=== PATIENT | female | born 2000 | race Caucasian/White ===

== ENCOUNTER 2020-05-17 11:40 | Emergency (ER) | payer BC ==
[2020-05-17 12:24] LABS: BILIRUBIN,URINE NEGATIVE (NEGATIVE); CLARITY,URINE CLEAR (CLEAR); GLUCOSE, URINE (UA) NEGATIVE (NEGATIVE); KETONES,URINE (UA) NEGATIVE (NEGATIVE); LEUKOCYTE ESTERASE, URINE LARGE (NEGATIVE); NITRITE,URINE NEGATIVE (NEGATIVE); OCCULT BLOOD,URINE LARGE (NEGATIVE); PROTEIN,URINE NEGATIVE (NEGATIVE); UROBILINOGEN,URINE 0.2 (NORMAL) E.U./dL (NORMAL)
[2020-05-17 12:44] LABS: BACTERIA,URINE None Seen /HPF (None Seen); SQUAMOUS EPITHELIAL CELL,UR NONE SEEN (<= Few)
--- NOTE | 2020-05-17 13:14 | ED Physician Documentation ---
PD HPI FEMALE - Stated complaint Stated Complaint: FEMAL - Chief complaint Chief Complaint: UTI - History obtained from History obtained from: Patient - History of Present Illness Timing - onset: How many days ago (few) Timing - duration: Days Timing - details: Gradual onset, Still present Associated symptoms: Vaginal pain (some labial itching at times), Dysuria, Urinary frequency. No: Fever, Vaginal discharge Contributing factors: No: Exposed to STD Similar symptoms before: Has not had sx before Recently seen: Not recently seen Review of Systems Constitutional: denies: Fever, Chills GI: denies: Abdominal Pain, Nausea, Vomiting Musculoskeletal: denies: Back pain PD PAST MEDICAL HISTORY - Past Medical History Past Medical History: No - Present Medications Home Medications: Ambulatory Orders Medication Instructions Recorded Confirmed Cephalexin [Keflex] 500 mg PO TID #18 capsule 05/17/20 Fluconazole [Diflucan] 150 mg PO Q2D #3 tablet 05/17/20 - Allergies Allergies/Adverse Reactions: Allergies Allergy/AdvReac Type Severity Reaction Status Date / Time No Known Drug Allergies Allergy Verified 05/17/20 11:58 PD ED PE NORMAL - Vitals Vital signs reviewed: Yes - General General: Alert and oriented X 3, Well developed/nourished - Abdomen Abdomen: Soft, Non tender, Other (obese) - Female Female : Deferred - Back Back: No CVA TTP - Derm Derm: Normal color, Warm and dry Results - Vitals Vitals: Vital Signs - 24 hr 05/17/20 05/17/20 11:58 13:36 Temperature 36.8 C 36.6 C Heart Rate 86 84 Respiratory 16 16 Rate Blood Pressure 152/90 H 140/80 H O2 Saturation 98 100 Oxygen O2 Source Room air - Labs Labs: Laboratory Tests 05/17/20 05/17/20 12:09 12:10 Urine Color YELLOW Urine Clarity CLEAR Urine pH 6.0 Ur Specific Braymer <=1.005 <=1.005 Urine Protein NEGATIVE Urine Glucose (UA) NEGATIVE Urine Ketones NEGATIVE Urine Occult Blood LARGE H Urine Nitrite NEGATIVE Urine Bilirubin NEGATIVE Urine Urobilinogen 0.2 (NORMAL) Ur Leukocyte Esterase LARGE H Urine RBC 6-10 H Urine WBC >25 H Ur Squamous Epith Cells NONE SEEN Urine Bacteria None Seen Ur Microscopic Review INDICATED Urine Culture Comments INDICATED Urine HCG, Qual NEGATIVE PD MEDICAL DECISION MAKING - ED course Complexity details: considered differential (UA c/w UTI. describes some possible vaginal itching, so could give antifungal as well. Await cultures. ), d/w patient Departure - Departure Disposition: 01 Home, Self Care Clinical Impression: Dysuria UTI (urinary tract infection) Qualifiers: Urinary tract infection type: acute cystitis Hematuria presence: without hematuria Qualified Code(s): N30.00 - Acute cystitis without hematuria Condition: Stable Record reviewed to determine appropriate education?: Yes Instructions: ED UTI Cystitis Female Prescriptions: Fluconazole [Diflucan] 150 mg PO Q2D #3 tablet Cephalexin [Keflex] 500 mg PO TID #18 capsule Comments: Stay well-hydrated. Use the cephalexin antibiotic as directed for apparent bladder infection. You can also take the Diflucan every other day for 3 doses for potential yeast infection. Recheck if not improved well over the next several days. Discharge Date/Time: 05/17/20 13:36
[2020-05-17] MEDS ORDERED: cephALEXin 250 MG CAPSULE PO STA (13:21)
[2020-05-17] MEDS ORDERED: FLUCONAZOLE 100 MG TABLET PO STA (13:21)
[2020-05-17] MEDS ORDERED: PHENAZOPYRIDINE 100 MG TABLET PO STA (13:22)
[2020-05-17 13:37] LABS: HCG UR QUAL NEGATIVE
[2020-05-17 13:38] VITALS: BP 140/80
== END 2020-05-17 13:36 | disposition home or self-care (01) ==
LOC: ED 11:40
DX: N30.00 Acute cystitis without hematuria (principal)
CPT/HCPCS: 81001; 81025; 87086; 99283; A9270; 81003

== ENCOUNTER 2020-06-22 21:10 | Emergency (ER) | payer BC ==
[2020-06-22 21:51] LABS: BASOPHILS # (AUTO) 0.1 10^3/uL (0.0-0.1); BASOPHILS % (AUTO) 0.9 %; EOSINOPHILS # (AUTO) 0.5 10^3/uL (0.0-0.7); EOSINOPHILS % (AUTO) 3.6 %; HGB - HEMOGLOBIN 12.5 g/dL (12.0-16.0); LYMPHOCYTES # (AUTO) 3.8 10^3/uL (1.5-3.5); LYMPHOCYTES % (AUTO) 29.5 %; MEAN CORPUSCULAR HEMOGLOBIN 24.4 pg (27.0-31.0); MEAN CORPUSCULAR HGB CONC 30.9 g/dL (32.0-36.0); MEAN CORPUSCULAR VOLUME 78.9 fL (81.0-99.0); MEAN PLATELET VOLUME 9.4 fL (7.9-10.8); MONOCYTES % (AUTO) 7.5 %; NEUTROPHILS # (AUTO) 7.5 10^3/uL (1.5-6.6); PLT - PLATELET COUNT 525 10^3/uL (130-450); RED BLOOD COUNT 5.13 10^6/uL (4.20-5.40); RED CELL DISTRIBUTION WIDTH 14.6 % (12.0-15.0)
[2020-06-22 21:58] LABS: ALBUMIN 4.3 g/dL (3.2-5.5); ALBUMIN/GLOBULIN RATIO 1.2 (1.0-2.2); BILIRUBIN,TOTAL 0.4 mg/dL (0.2-1.0); CALCIUM 9.8 mg/dL (8.5-10.3); CREATININE 0.7 mg/dL (0.4-1.0); TOTAL PROTEIN 7.9 g/dL (6.7-8.2)
--- NOTE | 2020-06-22 21:59 | ED Physician Documentation ---
History of Present Illness - Stated complaint Stated Complaint: FEMALE - Chief complaint Chief Complaint: Abd Pain - History obtained from History obtained from: Patient, Family - Additonal information Additional information: 19-year-old female presents to the emergency department for evaluation of vulvar pain. She reports that for each of her last 4 cycles when she begins her period she begins to have abdominal cramping which she expects. However on day 3 of her menses she will begin to have pain in the vulvar area which has become increasingly uncomfortable over the last 48 hours. She denies pain with urination. She has had no fevers. She denies any history of sexually transmitted infection. This young lady lives in [place] but is currently on [facility] visiting her boyfriend. They do report that they did try and have sexual intercourse but she found it too painful. They have been using lubricating jelly but it hurts too much. She denies that she has pain with intercourse when she is not on her menstrual cycle. Review of Systems Constitutional: reports: Reviewed and negative Ears: reports: Reviewed and negative Nose: reports: Reviewed and negative Throat: reports: Reviewed and negative Cardiac: reports: Reviewed and negative Respiratory: reports: Reviewed and negative : reports: Vaginal bleeding, Other (vulvar pain). denies: Dysuria, Frequency, Hesitancy, Unable to Void Skin: reports: Reviewed and negative Musculoskeletal: reports: Reviewed and negative PD PAST MEDICAL HISTORY - Present Medications Home Medications: Ambulatory Orders Medication Instructions Recorded Confirmed Cephalexin [Keflex] 500 mg PO TID #18 capsule 05/17/20 Fluconazole [Diflucan] 150 mg PO Q2D #3 tablet 05/17/20 - Allergies Allergies/Adverse Reactions: Allergies Allergy/AdvReac Type Severity Reaction Status Date / Time No Known Drug Allergies Allergy Verified 06/22/20 21:27 PD ED PE EXPANDED - General General: Alert, Anxious - Cardiac Cardiac: Regular Rate, Regular Rhythm, Radial strong equal, Pedal strong equal, Cap refill < 2 sec - Respiratory Respiratory: Clear to ausultation melita, Distress - Abdomen Abdomen: Normal Bowel sounds. No: Tender to palpation - Female Female : Normal external (Normal external female exam. No vulvar lesions swelling or erythema. No cervical motion tenderness or adnexal tenderness. Patient is on her menses with moderate amount of blood in the vault) Results - Vitals Vitals: Vital Signs - 24 hr 06/22/20 21:15 Temperature 36.7 C Heart Rate 96 Respiratory 16 Rate Blood Pressure 148/83 H O2 Saturation 98 Oxygen O2 Source Room air - Labs Labs: Laboratory Tests 06/22/20 06/22/20 21:40 21:40 WBC 13.0 H RBC 5.13 Hgb 12.5 Hct 40.5 MCV 78.9 L MCH 24.4 L MCHC 30.9 L RDW 14.6 Plt Count 525 H MPV 9.4 Neut # (Auto) 7.5 H Lymph # (Auto) 3.8 H Clayton # (Auto) 1.0 Eos # (Auto) 0.5 Baso # (Auto) 0.1 Absolute Nucleated RBC 0.00 Nucleated RBC % 0.0 Sodium 145 Potassium 3.7 Chloride 104 Carbon Dioxide 24 Anion Gap 17.0 H BUN 9 Creatinine 0.7 Estimated GFR (MDRD) 108 Glucose 100 Calcium 9.8 Total Bilirubin 0.4 AST 16 ALT 14 Alkaline Phosphatase 60 Total Protein 7.9 Albumin 4.3 Globulin 3.6 Albumin/Globulin Ratio 1.2 Lipase 30 PD MEDICAL DECISION MAKING - ED course Complexity details: reviewed results, considered differential, d/w patient, d/w family ED course: 19-year-old female presents the emergency department for evaluation of vulvar pain that typically occurs on the second or third day of her menstrual cycle. This is been a continuous problem for the last 4 months. She denies that she has vulvar pain when she is not on her menstrual cycle. She denies that she has any dysuria at this time. She denies dyspareunia when she is NOT on her menst rual cycle. She has been speaking to her primary care provider about this concern and they are considering changing her oral contraceptive due to this concern. On exam today there were no abnormal findings on the exam. I have given her 1 Vicodin for analgesia. I do recommend that she continue to follow-up with her primary care provider to discuss alternatives for control as the hormones may be causing her vulvar pain during menses. I have also advised her to abstain from sex while on her period. I have also recommended the use of a lubricating jelly that is water-based in her vulvar area to see if that helps with her pain control. We have obtained a bacterial vaginosis swab which may be helpful in helping further differentiate her pain if it is positive. Results will be relayed to the patient when they are available. She will be signed out to my nighttime colleague Dr. Mack to follow-up on the urine analysis. If the urine shows no further signs of infection she is cleared to be discharged home as above. Departure - Departure Clinical Impression: Pain in vulva Condition: Stable Record reviewed to determine appropriate education?: Yes Comments: Gali we have sent a swab today to check for different types of vaginal infections that can sometimes cause your pain. We will notify you if these results are positive. I do recommend that you continue to follow-up with your primary care provider to discuss the pain that you have in your vulvar area when you are on your menstrual cycle. She may want to consider an alternative control. I also recommend that you abstain from any further sexual activity until this pain is controlled. Continue to use the ibuprofen at home for pain control. I do also recommend that you use a water-based lubricating jelly in your vulvar area for further discomfort.
[2020-06-22] MEDS ORDERED: HYDROcod/ACETAM 5/325 MG TABLET PO STA (22:06)
[2020-06-22 22:31] LABS: GLUCOSE, URINE (UA) NEGATIVE (NEGATIVE); KETONES,URINE (UA) NEGATIVE (NEGATIVE); LEUKOCYTE ESTERASE, URINE NEGATIVE (NEGATIVE); NITRITE,URINE NEGATIVE (NEGATIVE); OCCULT BLOOD,URINE LARGE (NEGATIVE); PROTEIN,URINE 30 mg/dL (NEGATIVE); UROBILINOGEN,URINE 0.2 (NORMAL) E.U./dL (NORMAL)
[2020-06-22 22:40] LABS: BILIRUBIN,URINE NEGATIVE (NEGATIVE); CLARITY,URINE HAZY (CLEAR); HCG UR QUAL NEGATIVE; ICTOTEST,URINE NEGATIVE
[2020-06-22 22:42] LABS: BACTERIA,URINE Few /HPF (None Seen); SQUAMOUS EPITHELIAL CELL,UR RARE Squamous (<= Few)
--- NOTE | 2020-06-22 22:50 | ED Physician Documentation ---
ED Addendum - Addendum Addendum: 06/22/20 22:49The urinalysis shows some white cells and red cells but negative for leukocyte and nitrates on dipstick. At this point is not clearly conclusive for UTI and I would await the cultures. The patient will be discharged per the original provider instructions. Vulvar pain with intercourse Disposition patient is discharged home in stable condition
[2020-06-22 23:02] VITALS: BP 137/81
[2020-06-23 00:36] LABS: CANDIDA GROUP DNA NEGATIVE (NEGATIVE); CANDIDA KRUSEI DNA NEGATIVE (NEGATIVE); TRICHOMONAS VAGINALIS DNA NEGATIVE (NEGATIVE)
== END 2020-06-22 23:02 | disposition home or self-care (01) ==
LOC: ED 21:10
DX: R10.2 Pelvic and perineal pain (principal)
CPT/HCPCS: 36415; 80053; 81001; 81025; 83690; 85025; 87086; 87481; 87661; 87801; 99283; 99284; A9270; 81003